=== PATIENT | male | born 1975 | race Two or more races ===

== ENCOUNTER → 2022-06-27 | Emergency (ER) | payer OTHER ==
[~2022-06-27] VITALS: Ht 172.7 cm; Wt 83.9 kg
[~2022-06-27] MED LIST: AMLODIPINE-OLM1 EAC2
== END | disposition left against medical advice (07) ==
LOC: ER 08:26
DX: J02.0 Streptococcal pharyngitis (principal); I10 Essential (primary) hypertension; Z21 Asymptomatic human immunodeficiency virus [HIV] infection status

== ENCOUNTER 2024-10-20 10:22 | Emergency (ER) | payer BC, OTHER ==
[~2024-10-20] VITALS: Ht 172.7 cm; Wt 83.9 kg
[~2024-10-20 10:22] MED LIST changes: +DOLOGEN CAPLET1 EACH PO; +ODEFSEY TABLET1 EACH; +TAMIFLU45 MG PO; +TUSNEL LIQUID178 ML PO
[2024-10-20] MEDS ORDERED: LIDOCAINE HCL 1%/EPINEPHRINE 20ML VIAL IJ ONE (11:53)
== END 2024-10-20 13:09 | disposition home or self-care (01) ==
LOC: ER 10:24
DX: Q18.1 Preauricular sinus and cyst (principal); H60.01 Abscess of right external ear; B20 Human immunodeficiency virus [HIV] disease